=== PATIENT | female | born 1965 | race African-American/Black ===

== ENCOUNTER → 2017-02-11 | Outpatient (CLI) | payer OTHER ==
[~2017-02-11] MED LIST: CLONAZEPAM; ELAVIL; NORCO 5-325 TA1 EACH PO; PRISTIQ50 MG; SEROQUEL; TAMOXIFEN
== END ==
LOC: RAD 01:39
DX: Z12.31 Encounter for screening mammogram for malignant neoplasm of breast (principal)

== ENCOUNTER → 2017-02-13 | Outpatient (CLI) | payer OTHER | LOC: BC 03:25 | DX: N60.01 Solitary cyst of right breast (principal); N63 Unspecified lump in breast; R92.8 Other abnormal and inconclusive findings on diagnostic imaging of breast ==